=== PATIENT | male | born 1980 | race Caucasian/White ===

== ENCOUNTER 2016-11-02 14:57 | Inpatient (IN) | payer OTHER ==
[~2016-11-02] VITALS: Ht 175.3 cm; Wt 77.3 kg
[~2016-11-02 14:57] MED LIST: NORVIR100 MG PO; REYATAZ300 MG PO; TRUVADA 200 MG1 EACH PO
[2016-11-02] MEDS ORDERED: EVOTAZ 300 MG-1 EACH PO (15:12)
[2016-11-02] MEDS ORDERED: VALIUM5 MG PO (15:13)
[2016-11-02 15:15] LABS: POINT-OF-CARE METER ID UU13113778
[2016-11-02 16:15] LABS: HEMATOCRIT 41.6 % (38.0-50.0); MCH 35.4 PG (29.0-34.0); MCHC 36.1 G/DL (30.0-36.0); MCV 98.1 FL (86-99); MEAN PLAT.VOLUME 9.6 uM^3 (9.0-12.4); PLATELET COUNT 129 K/uL (156-360); RBC DIS.WIDTH-CV 13.6 % (11.8-14.6); RBC DIS.WIDTH-SD 49.3 % (39-53); RED BLOOD COUNT 4.24 M/uL (4.00-5.50); WHITE BLOOD COUNT 2.6 K/uL (4.1-10.2)
[2016-11-02 16:29] LABS: CHLORIDE 100 mEq/L (99-109); POTASSIUM 3.3 mEq/L (3.7-5.4); SODIUM 136 mEq/L (136-147)
[2016-11-02 16:32] LABS: GLUCOSE 103 mg/dL (70-99)
[2016-11-02 16:33] LABS: ANION GAP 16 MEQ/L (2-14)
[2016-11-02 16:34] LABS: TOTAL BILIRUBIN 5.4 mg/dL (0.0-1.0)
[2016-11-02 16:35] LABS: ALKALINE PHOSPHATASE 91 IU/L (3-129); SERUM ETHYL ALCOHOL 95 mg/dL
[2016-11-02 16:36] LABS: GFR ESTIMATE (CALCULATED) > 59 mL/min/
[2016-11-02 16:37] LABS: UREA NITROGEN (BUN) 5 mg/dL (9-23)
[2016-11-02 16:40] LABS: TROP-I INTERPRETATION NEGATIVE; TROPONIN-I < 0.01 ng/mL (0.0-0.30)
[2016-11-02 17:13] LABS: MAGNESIUM 2.3 mg/dL (1.3-2.7)
[2016-11-02 17:54] LABS: ADD MIUA? NO; BILIRUBIN NEGATIVE; BLOOD NEGATIVE; COLOR STRAW ((YELLOW)); GLUCOSE (STRIP) NEGATIVE; KETONES NEGATIVE; LEUKOCYTES NEGATIVE; NITRITE NEGATIVE; PROTEIN (STRIP) NEGATIVE; SPECIFIC GRAVITY 1.004 (1.000-1.030); UROBILINOGEN 0.2 MG/DL (0.2-1.0)
[2016-11-02] MEDS ORDERED: TRUVADA1 TABLET PO (19:34)
[2016-11-02] MEDS ORDERED: CYANOCOBALAM1000 MCG PO (19:35)
[2016-11-02] MEDS ORDERED: ADVIL200 MG PO (19:35)
[2016-11-02] MEDS ORDERED: NASACORT10.8 ML BOTH NARES (19:36)
[2016-11-02] MEDS ORDERED: VITAMIN D2000 UNI1 PO (19:36)
[2016-11-02] MEDS ORDERED: PROAIR HFA8.5 GM IH (19:36)
[2016-11-03] VITALS (7 sets, daily range): BP systolic 120–146; BP diastolic 77–99
[2016-11-03 01:09] LABS: TROP-I INTERPRETATION NEGATIVE; TROPONIN-I < 0.01 ng/mL (0.0-0.30)
[2016-11-03 07:02] LABS: EOSINOPHIL (%) 0.9 % (0-5); HEMATOCRIT 41.6 % (38.0-50.0); IMMATURE GRANULOCYTE (%) 0.5 % (0.0-0.7); INSTRUMENT ABS NEUTROPHIL CT 1.1 K/uL; LYMPHOCYTE COUNT 0.7 K/uL (1.0-2.8); MCH 35.4 PG (29.0-34.0); MCHC 34.9 G/DL (30.0-36.0); MCV 101.5 FL (86-99); MEAN PLAT.VOLUME 9.9 uM^3 (9.0-12.4); MONOCYTE (%) 13.4 % (3-12); MONOCYTE COUNT 0.3 K/uL (0-0.8); NEUTROPHIL COUNT 1.1 K/uL (1.8-6.4); PLATELET COUNT 120 K/uL (156-360); RBC DIS.WIDTH-CV 13.6 % (11.8-14.6); RBC DIS.WIDTH-SD 51.1 % (39-53); WHITE BLOOD COUNT 2.2 K/uL (4.1-10.2)
[2016-11-03 07:26] LABS: TROP-I INTERPRETATION NEGATIVE; TROPONIN-I < 0.01 ng/mL (0.0-0.30)
[2016-11-03 07:36] LABS: ALKALINE PHOSPHATASE 94 IU/L (3-129); ANION GAP 9 MEQ/L (2-14); CHLORIDE 101 MEQ/L (99-109); DIRECT BILIRUBIN 1.1 mg/dL (0.0-0.3); GFR ESTIMATE (CALCULATED) > 59 mL/min/; GLUCOSE 90 mg/dL (70-99); POTASSIUM 3.8 MEQ/L (3.7-5.4); SAMPLE HEMOLYSIS CHECK 0; SAMPLE ICTERIC CHECK 2; SAMPLE LIPEMIA CHECK 0; SODIUM 135 MEQ/L (136-147); TOTAL BILIRUBIN 6.3 MG/DL (0.0-1.0); UREA NITROGEN (BUN) 6 mg/dL (9-23)
[2016-11-03 15:12] LABS: INTER. NORMALIZED RATIO 1.1; PROTHROMBIN TIME 10.8 (9.2-11.2)
[2016-11-04 04:00] VITALS: BP 111/64
[2016-11-04 06:43] LABS: MCH 35.2 PG (29.0-34.0); MCHC 34.5 G/DL (30.0-36.0); MCV 101.9 FL (86-99); MEAN PLAT.VOLUME 10.1 uM^3 (9.0-12.4); PLATELET COUNT 118 K/uL (156-360); RBC DIS.WIDTH-CV 13.4 % (11.8-14.6); RBC DIS.WIDTH-SD 50.8 % (39-53); RED BLOOD COUNT 4.32 M/uL (4.00-5.50); WHITE BLOOD COUNT 2.6 K/uL (4.1-10.2)
[2016-11-04 07:02] LABS: ANION GAP 9 MEQ/L (2-14); CHLORIDE 98 MEQ/L (99-109); GFR ESTIMATE (CALCULATED) > 59 mL/min/; GLUCOSE 102 mg/dL (70-99); POTASSIUM 3.7 MEQ/L (3.7-5.4); SAMPLE HEMOLYSIS CHECK 0; SAMPLE ICTERIC CHECK 1; SAMPLE LIPEMIA CHECK 0; SODIUM 133 MEQ/L (136-147); UREA NITROGEN (BUN) 9 mg/dL (9-23)
[2016-11-04 07:10] VITALS: BP 113/73
[2016-11-04 12:10] VITALS: BP 134/81
[2016-11-04] MEDS ORDERED: THERAGRAN1 TABLET PO (13:28)
[2016-11-04] MEDS ORDERED: FOLIC ACID1 MG PO (13:28)
[2016-11-04] MEDS ORDERED: Thiamine,Vitamin B1 PO (13:28)
== END 2016-11-04 15:01 | disposition home or self-care (01) | DRG 897 ==
LOC: EME 14:57 → EDOF 20:55 → 4EAST 11-03 00:41
PROVIDERS: Hospitalist; Internal Medicine Cardiovascular Disease; Nurse Practitioner Adult Health; Nurse Practitioner Family; Physician Assistant
DX: F10.239 Alcohol dependence with withdrawal, unspecified (principal); F10.229 Alcohol dependence with intoxication, unspecified; Y90.4 Blood alcohol level of 80-99 mg/100 ml; E87.6 Hypokalemia; R55 Syncope and collapse; D69.6 Thrombocytopenia, unspecified
CPT/HCPCS: 70450; 71010; 74176; 80048; 80053; 80076; 81003; 82948; 83735; 84484; 85025; 85027; 85610; 93005; 99281; 99285; C9113; G0480; J2405; J7030